=== PATIENT | male | born 1975 | race American Indian/Alaskan Native ===

== ENCOUNTER 2021-01-01 17:47 | Emergency (ER) | payer SELFPAY ==
[2021-01-01 18:11] VITALS: BP 103/71
--- NOTE | 2021-01-01 18:12 | Emergency Department Report ---
ED General Adult HPI - General Chief complaint: Extremity Injury, Lower Stated complaint: RT FOOT Time Seen by Provider: 01/01/21 18:08 Source: patient Mode of arrival: Wheelchair Limitations: No Limitations - History of Present Illness Initial comments: 45 yo AA M pt presents with complaints of right foot/ankle pain after twist injury today. He rates his pain at a 10/10 in severity and states it worsens with touch and weight bearing. Denies bruising, skin changes, or numbness. No decreased ROM per pt. - Related Data Previous Rx's Medication Instructions Recorded Last Taken Type HYDROcodone/APAP 5-325 [Freedom 1 each PO Q8HR PRN #10 tablet 06/08/16 Unknown Rx 5/325] Naproxen 500 mg PO BID PRN #14 tablet 01/01/21 Unknown Rx Allergies Allergy/AdvReac Type Severity Reaction Status Date / Time Penicillins Allergy Unknown Verified 01/01/21 18:06 ED Review of Systems ROS: Stated complaint: RT FOOT Other details as noted in HPI Constitutional: denies: malaise Musculoskeletal: joint swelling, arthralgia Skin: denies: change in color Neurological: denies: numbness, paresthesias ED Past Medical Hx - Past Medical History Previous Medical History?: No - Surgical History Hx Appendectomy: Yes Additional Surgical History: hernia repair x2 - Social History Smoking Status: Current Every Day Smoker Substance Use Type: None - Medications Home Medications: Home Medications Medication Instructions Recorded Confirmed Last Taken Type HYDROcodone/APAP 5-325 [Freedom 1 each PO Q8HR PRN #10 tablet 06/08/16 Unknown Rx 5/325] Naproxen 500 mg PO BID PRN #14 tablet 01/01/21 Unknown Rx ED Physical Exam - General Limitations: No Limitations General appearance: alert, in no apparent distress - Head Head exam: Present: atraumatic, normocephalic - Eye Eye exam: Present: normal appearance - Neck Neck exam: Present: full ROM - Respiratory Respiratory exam: Absent: respiratory distress - Cardiovascular Cardiovascular Exam: Present: regular rate - Extremities Exam Extremities exam: Present: full ROM, other (ttp over right talus and tarsals without erythema, swelling, or bruising noted. Normal pedal pulses noted. Normal sensation noted) - Neurological Exam Neurological exam: Present: alert, oriented X3 - Psychiatric Psychiatric exam: Present: normal affect, normal mood - Skin Skin exam: Present: warm, dry, intact, normal color. Absent: rash ED Course Vital Signs 01/01/21 18:10 Temperature 99.0 F Pulse Rate 70 Respiratory 18 Rate Blood Pressure 103/71 O2 Sat by Pulse 98 Oximetry ED Medical Decision Making - Radiology Data Radiology results: report reviewed RIGHT ANKLE 3 VIEW(S) INDICATION / CLINICAL INFORMATION: tenderness at talus and tarsals after twist injury COMPARISON: None available. FINDINGS: BONES / JOINT(S): No acute fracture or subluxation. No significant arthritis. SOFT TISSUES: No significant abnormality. ADDITIONAL FINDINGS: None. - Medical Decision Making 45 yo AA M pt presents with complaints of right foot/ankle pain after twist injury today. He rates his pain at a 10/10 in severity and states it worsens with touch and weight bearing. Denies bruising, skin changes, or numbness. No decreased ROM per pt. Xr is negative for any acute bony abnormalities. Will treat for ankle sprain with rice method and NSAIDs. Patient to follow-up with orthopedics as needed. Strict return precautions were discussed in detail with patient who verbalizes understanding. Critical care attestation.: If time is entered above; I have spent that time in minutes in the direct care of this critically ill patient, excluding procedure time. ED Disposition Clinical Impression: Right ankle sprain Qualifiers: Encounter type: initial encounter Involved ligament of ankle: other ligament Qualified Code(s): S93.491A - Sprain of other ligament of right ankle, initial encounter Disposition: TO HOME OR SELFCARE Is pt being admited?: No Condition: Stable Instructions: Ankle Sprain Prescriptions: Naproxen 500 mg PO BID PRN #14 tablet PRN Reason: pain Referrals: LIZZETH ANDREWS MD [Staff Physician] - as needed Forms: Work/School Release Form(ED)
--- NOTE | 2021-01-01 19:01 | XRay Report ---
RIGHT ANKLE 3 VIEW(S) INDICATION / CLINICAL INFORMATION: tenderness at talus and tarsals after twist injury COMPARISON: None available. FINDINGS: BONES / JOINT(S): No acute fracture or subluxation. No significant arthritis. SOFT TISSUES: No significant abnormality. ADDITIONAL FINDINGS: None. Signer Name: Freddy Aranda MD Signed: 01/01/2021 6:57 PM Workstation Name: [id number]
== END 2021-01-01 20:46 | disposition home or self-care (01) ==
LOC: ED 17:47
DX: S93.491A Sprain of other ligament of right ankle, initial encounter (principal); F17.200 Nicotine dependence, unspecified, uncomplicated; Z79.899 Other long term (current) drug therapy; Z88.0 Allergy status to penicillin; Z98.890 Other specified postprocedural states; Z90.49 Acquired absence of other specified parts of digestive tract; X50.1XXA Overexertion from prolonged static or awkward postures, initial encounter; Y93.89 Activity, other specified; Y92.89 Other specified places as the place of occurrence of the external cause; Y99.8 Other external cause status